=== PATIENT | male | born 1965 | race African-American/Black ===

== ENCOUNTER 2020-02-16 08:57 | Emergency (ER) | payer OTHER ==
[~2020-02-16] VITALS: Ht 170.2 cm; Wt 75.0 kg
[~2020-02-16 08:57] MED LIST: (None)3.5 GM OP; AMOXICILLIN875 MG PO; AUGMENTIN875TAB OR; BACTRIM DS1 TAB PO; CIALIS5 MG OR; GENTAMICIN SULF5 ML OP; HYDROCO/APAP1 T11 OR; LOMOTIL2.5 MG PO; NAPROSYN500 MG OR; NO HOME MEDS; OMEPRAZOLE20 MG PO; ZOFRAN ODT4 MG PO
[2020-02-16 09:15] VITALS: BP 150/80
[2020-02-16] MEDS ORDERED: AMOX/K CLAV875 M1 PO (10:20)
[2020-02-16] MEDS ORDERED: ALL DAY10 MG PO (10:23)
--- NOTE | 2020-02-17 16:07 | NUR ---
Patient called for results of Covid test. Advised patient of negative results. Patient requests a copy of results. 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
== END 2020-02-16 10:29 | disposition home or self-care (01) | DRG 153 ==
LOC: ED 08:57
DX: J06.9 Acute upper respiratory infection, unspecified (principal); F17.200 Nicotine dependence, unspecified, uncomplicated; Z20.828 Contact with and (suspected) exposure to other viral communicable diseases

== ENCOUNTER 2022-08-05 09:03 | Day surgery (SDC) | payer BC ==
[~2022-08-05] VITALS: Ht 170.2 cm; Wt 78.0 kg
[~2022-08-05 09:03] MED LIST changes: +ACTOS15 MG PO; +ALFUZOSIN HCL E10 MG PO; +ALL DAY10 MG PO; +AMOX/K CLAV875 M1 PO; +DICYCLOMINE10 MG PO; +MELOXICAM15 MG PO; +PROTONIX40 M2 PO
[2022-08-05 11:35] VITALS: BP 128/83
== END 2022-08-05 12:00 | disposition home or self-care (01) | DRG 392 ==
LOC: ENDO 09:03 → ORM 10:45 → ENDO 10:45 → ORM 11:15 → ENDO 11:55
PROVIDERS: ATTEND Internal Medicine Gastroenterology
PROC: 0DBN8ZX Excision of Sigmoid Colon, Via Natural or Artificial Opening Endoscopic, Diagnostic (ICD-10-PCS; principal; 2022-08-05)
DX: K57.30 Diverticulosis of large intestine without perforation or abscess without bleeding (principal); K63.5 Polyp of colon; K64.8 Other hemorrhoids